=== PATIENT | female | born 1940 | race Caucasian/White ===

== ENCOUNTER → 2016-12-04 | Outpatient (CLI) | payer MEDICARE, OTHER ==
[2016-12-04 09:14] LABS: ABSOLUTE EOSINOPHILS # (AUTO) 0.1 10^3/uL (0.0-0.6); ABSOLUTE LYMPHOCYTES (AUTO) 1.4 10^3/uL (0.5-4.7); ABSOLUTE MONOCYTES (AUTO) 0.4 10^3/uL (0.1-1.4); ABSOLUTE NEUT (AUTO) 4.6 10^3/uL (1.7-8.2); BASOPHILS % (AUTO) 0.7 % (0-2); EOSINOPHILS % (AUTO) 1.9 % (0-6); HEMATOCRIT 42.3 % (36.0-47.0); HEMOGLOBIN 14.5 g/dL (12.0-15.5); HGB HCT DIFFERENCE 1.2; LYMPHOCYTES % (AUTO) 20.8 % (13-45); MEAN CORPUSCULAR HGB CONC 34.3 g/dL (32.0-36.0); MEAN CORPUSCULAR VOLUME 88 fl (80-97); MONOCYTES % (AUTO) 6.8 % (3-13); RED BLOOD COUNT 4.84 10^6/uL (3.72-5.28); RED CELL DISTRIBUTION WIDTH 14.5 % (11.5-14.0); SEGMENTED NEUTROPHILS % (AUTO) 69.8 % (42-78); WHITE BLOOD COUNT 6.6 10^3/uL (4.0-10.5)
[2016-12-04 09:38] LABS: ALANINE AMINOTRANSFERASE 23 U/L (9-52); ALBUMIN 4.1 g/dL (3.5-5.0); ALKALINE PHOSPHATASE 75 U/L (38-126); ANION GAP 12 (5-19); ASPARTATE AMINO TRANSFERASE 20 U/L (14-36); BILIRUBIN,DIRECT 0.3 mg/dL (0.0-0.4); BILIRUBIN,TOTAL 1.2 mg/dL (0.2-1.3); BLOOD UREA NITROGEN 11 mg/dL (7-20); CARBON DIOXIDE 27 mmol/L (22-30); CHLORIDE 105 mmol/L (98-107); CHOLESTEROL 175.21 mg/dL (0-200); CREATININE RESULT 0.48 mg/dL (0.52-1.25); Direct HDL 74 mg/dL (>40); GLUCOSE 87 mg/dL (75-110); POTASSIUM 4.3 mmol/L (3.6-5.0); TOTAL PROTEIN 7.2 g/dL (6.3-8.2); TRIGLYCERIDES 80 mg/dL (<150)
[2016-12-04 09:49] LABS: DIRECT LDL 76 mg/dL (<100)
== END ==
LOC: OD 08:33
PROVIDERS: ATTEND Internal Medicine
DX: I10 Essential (primary) hypertension (principal); R53.83 Other fatigue; E78.5 Hyperlipidemia, unspecified; E55.9 Vitamin D deficiency, unspecified; I49.5 Sick sinus syndrome
CPT/HCPCS: 36415; 80053; 80061; 82306; 84443; 85025

== ENCOUNTER → 2017-02-04 | Outpatient (CLI) | payer MEDICARE, OTHER ==
[2017-02-04 08:51] LABS: ALANINE AMINOTRANSFERASE 25 U/L (9-52); ALBUMIN 3.9 g/dL (3.5-5.0); ALKALINE PHOSPHATASE 114 U/L (38-126); ASPARTATE AMINO TRANSFERASE 17 U/L (14-36); BILIRUBIN,DIRECT 0.3 mg/dL (0.0-0.4); BILIRUBIN,TOTAL 0.8 mg/dL (0.2-1.3); CHOLESTEROL 156.29 mg/dL (0-200); Direct HDL 69 mg/dL (>40); TOTAL PROTEIN 6.6 g/dL (6.3-8.2); TRIGLYCERIDES 111 mg/dL (<150)
[2017-02-04 09:02] LABS: DIRECT LDL 58 mg/dL (<100)
== END ==
LOC: OD 07:22
PROVIDERS: ATTEND Specialist
DX: E78.5 Hyperlipidemia, unspecified (principal); I10 Essential (primary) hypertension; Z79.899 Other long term (current) drug therapy; I48.0 Paroxysmal atrial fibrillation; Z95.0 Presence of cardiac pacemaker; I45.10 Unspecified right bundle-branch block; I27.2 Other secondary pulmonary hypertension; K21.9 Gastro-esophageal reflux disease without esophagitis; E66.9 Obesity, unspecified; R00.1 Bradycardia, unspecified
CPT/HCPCS: 36415; 80061; 80076

== ENCOUNTER 2017-07-31 07:12 | Day surgery (SDC) | payer MEDICARE, OTHER ==
--- NOTE | 2017-07-29 19:13 | HISTORY AND PHYSICAL E ---
History and Physical NAME: LIZ THOMAS : 1940 AGE: 77Y ADMITTED: 07/31/2017 07/31/2017 ROOM: HISTORY OF PRESENT ILLNESS: She used to see Dr. Wynn in 2002. She did have colonoscopy showing ascending colon polyp. PAST SURGICAL HISTORY: 1. Colonoscopy 2002, tubular adenoma. 2. She had cholecystectomy. 3. She did have umbilical hernia repaired. 4. 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 She sees *------*, 2009, 2 mm polyp ascending colon, external hemorrhoids, diverticulosis. 5. Colonoscopy, 2005, no polyps. 6. Another colonoscopy, 2015, shows as follows. SOCIAL HISTORY: . Does not smoke, does not drink. REVIEW OF SYSTEMS: Constipation, obesity, osteoporosis, plantar fasciitis, hypertension, macular degeneration. PHYSICAL EXAMINATION: VITAL SIGNS: Blood pressure 110/70, pulse 80, respirations 20, temperature is 98. HEAD, EYES, EARS, NOSE AND THROAT: Normal. NECK: Supple. LUNGS: Clear. ABDOMEN: Soft. NEUROLOGIC EXAM: Negative. MEDICATIONS: 1. Simvastatin. 2. Omeprazole. 3. Eliquis 5 mg twice daily. 4. Toprol. 5. Vitamin D. 6. Glucosamine. 7. MiraLax. CONCLUSION: 1. The patient was seen 05/22. She has pacemaker, atrial fib. She takes Eliquis. She does have adenoma polyp, diverticulosis. The patient stopped her Eliquis 24 hours prior colonoscopy. She sees Dr. Lopes. 2. Pacemaker. 3. The patient for colon screening. PLAN: Admit, 07/31/2017. DICTATING PHYSICIAN: CHIVO PORTILLO M.D. [id number] PHY#: [id number] ID: [id number] JOB#: [id number] ACCT: [id number] cc:CHIVO PORTILLO M.D. >
[2017-07-31] MEDS ORDERED: ONDANSETRON HCL INJ/PF 4 MG/2 ML SDV ONE (07:14)
[2017-07-31] MEDS ORDERED: GLYCOPYRROLATE INJ 0.4 MG/2 ML VIAL ONE (07:14)
[2017-07-31] MEDS ORDERED: NALOXONE HCL INJ/PF 0.4 MG/1 ML SDV ONE (07:14)
[2017-07-31] MEDS ORDERED: GLUCAGON,HUMAN RECOMB 1 MG INJ ONE (07:15)
[2017-07-31] MEDS ORDERED: EPINEPHRINE INJ 1 MG/10 ML DISP.SYRIN ONE (07:15)
[2017-07-31] MEDS ORDERED: FLUMAZENIL INJ 0.5 MG/5 ML VIAL ONE (07:15)
[2017-07-31] MEDS: MIDAZOLAM 2 MG/2 ML INJ ONE ×2 (08:25→08:35)
[2017-07-31] MEDS: FENTANYL CITRATE INJ/PF 100 MCG/2 ML AMPUL ONE ×2 (08:27→08:31)
[2017-07-31 09:58] VITALS: BP 107/57
[2017-07-31 10:11] LABS: ABSOLUTE BASOPHILS # (AUTO) 0.1 10^3/uL (0.0-0.2); ABSOLUTE EOSINOPHILS # (AUTO) 0.1 10^3/uL (0.0-0.6); ABSOLUTE LYMPHOCYTES (AUTO) 1.1 10^3/uL (0.5-4.7); ABSOLUTE MONOCYTES (AUTO) 0.7 10^3/uL (0.1-1.4); ABSOLUTE NEUT (AUTO) 8.5 10^3/uL (1.7-8.2); BASOPHILS % (AUTO) 0.6 % (0-2); EOSINOPHILS % (AUTO) 0.9 % (0-6); HEMATOCRIT 39.5 % (36.0-47.0); HEMOGLOBIN 13.7 g/dL (12.0-15.5); HGB HCT DIFFERENCE 1.6; LYMPHOCYTES % (AUTO) 10.8 % (13-45); MEAN CORPUSCULAR HEMOGLOBIN 30.4 pg (27.0-33.4); MEAN CORPUSCULAR HGB CONC 34.7 g/dL (32.0-36.0); MEAN CORPUSCULAR VOLUME 88 fl (80-97); MONOCYTES % (AUTO) 6.9 % (3-13); RED BLOOD COUNT 4.51 10^6/uL (3.72-5.28); RED CELL DISTRIBUTION WIDTH 14.2 % (11.5-14.0); SEGMENTED NEUTROPHILS % (AUTO) 80.8 % (42-78); WHITE BLOOD COUNT 10.5 10^3/uL (4.0-10.5)
--- NOTE | 2017-07-31 11:18 | OPERATIVE REPORT E ---
Operative Report NAME: LIZ THOMAS : 1940 AGE: 77Y DATE OF SURGERY: 07/31/2017 ROOM: PREOPERATIVE DIAGNOSIS: Screening history of polyps, diverticulosis. POSTOPERATIVE DIAGNOSES: 1. Diverticulosis. 2. Diminutive polyps. 3. Nonspecific mucosal changes, possibility of tiny sessile polyps versus possibility of polyps. PROCEDURE: Colonoscopy. SURGEON: CHIVO PORTILLO M.D. ANESTHESIA: Versed 2, fentanyl 50. TISSUE REMOVED OR ALTERED: None. DESCRIPTION: Rectal exam: Skin tags. Rectum normal. Sigmoid diverticulosis, mild. Descending colon redundant, normal. Transverse colon normal. Ascending: Question 2-mm polyp was seen in the way in. I could not see it in the way out. Cecum normal. Scope withdrawn from cecum, ascending. There are nonspecific findings, could be sessile polyps, could be AV malformation. and reluctant to biopsy because it may be AV malformation, sigmoid diverticulosis. RECOMMENDATIONS: Followup colonoscopy 1 year regarding probability of sessile polyp, possibility of AV malformation, diverticulosis. Consideration followup colonoscopy 1 year. DISCHARGE PLAN: Resume all medications. Baseline CBC, CEA. Consideration followup colonoscopy after 1 year for further evaluation. DICTATING PHYSICIAN: CHIVO PORTILLO M.D. [id number] Y#: [id number] ID: [id number] JOB#: [id number] ACCT: [id number] cc:CHIVO PORTILLO M.D. >
--- NOTE | 2017-07-31 13:44 | DISCHARGE SUMMARY E ---
Discharge Summary NAME: LIZ THOMAS : 1940 AGE: 77Y ADMITTED: 07/31/2017 DISCHARGED: 07/31/2017 HOSPITAL COURSE: A 77-year-old female presented for followup regarding polyps, diverticulosis. She is allergic to PENICILLIN, SULFA, CEPHALEXIN, AND TRIMETHOPRIM. Today's colonoscopy was completed to the cecum. There is suspicious sessile polyps versus AV malformation. She did have external hemorrhoid. She did have history of lipoma in ascending colon. History of adenoma polyps. The patient does not have any serious polyps. There is one area I saw [address] and I could not see it on the way out in the distal ascending colon. There is a nonspecific finding. It could be AV malformation. It could be beginning of sessile polyps. Patient to continue all her medications and consider another colonoscopy in 1 year for further evaluation. There are flat lesions. It looks like ulcerated mucosa versus sessile polyp versus AV malformation. Followup colonoscopy in 1 year is appropriate. We will obtain baseline CEA and CBC. DICTATING PHYSICIAN: CHIVO PORTILLO M.D. [id number] PHY#: [id number] ID: [id number] JOB#: [id number] ACCT: [id number] cc:CHIVO PORTILLO M.D. >
== END 2017-07-31 10:05 | disposition home or self-care (01) ==
LOC: END 07:12
PROVIDERS: ATTEND Specialist
PROC: 0DJD8ZZ Inspection of Lower Intestinal Tract, Via Natural or Artificial Opening Endoscopic (ICD-10-PCS; principal; 2017-07-31 08:00)
DX: K57.30 Diverticulosis of large intestine without perforation or abscess without bleeding (principal); Z86.010 Personal history of colon polyps; I10 Essential (primary) hypertension; M81.0 Age-related osteoporosis without current pathological fracture; Z79.899 Other long term (current) drug therapy; Z79.02 Long term (current) use of antithrombotics/antiplatelets; Z95.0 Presence of cardiac pacemaker; Z88.0 Allergy status to penicillin; Z88.2 Allergy status to sulfonamides; Z88.1 Allergy status to other antibiotic agents; Z88.8 Allergy status to other drugs, medicaments and biological substances; Z90.49 Acquired absence of other specified parts of digestive tract
CPT/HCPCS: 45378; 36415; 82378; 85025; J2250; J3010; J1610; J2405; J0171; J2310; J3490

== ENCOUNTER → 2018-01-08 | Outpatient (CLI) | payer MEDICARE, OTHER ==
[2018-01-08 08:12] LABS: ABSOLUTE BASOPHILS # (AUTO) 0.1 10^3/uL (0.0-0.2); ABSOLUTE EOSINOPHILS # (AUTO) 0.4 10^3/uL (0.0-0.6); ABSOLUTE LYMPHOCYTES (AUTO) 0.6 10^3/uL (0.5-4.7); ABSOLUTE MONOCYTES (AUTO) 0.4 10^3/uL (0.1-1.4); ABSOLUTE NEUT (AUTO) 6.3 10^3/uL (1.7-8.2); EOSINOPHILS % (AUTO) 5.4 % (0-6); HEMOGLOBIN 12.9 g/dL (12.0-15.5); LYMPHOCYTES % (AUTO) 7.2 % (13-45); MEAN CORPUSCULAR VOLUME 85 fl (80-97); MONOCYTES % (AUTO) 5.4 % (3-13); PLATELET COUNT 401 10^3/uL (150-450); RED BLOOD COUNT 4.46 10^6/uL (3.72-5.28); RED CELL DISTRIBUTION WIDTH 14.8 % (11.5-14.0); TOTAL CELLS COUNTED % (AUTO) 100 %; WHITE BLOOD COUNT 7.8 10^3/uL (4.0-10.5)
[2018-01-08 08:48] LABS: ALANINE AMINOTRANSFERASE 24 U/L (9-52); ALBUMIN 2.9 g/dL (3.5-5.0); ALKALINE PHOSPHATASE 75 U/L (38-126); ANION GAP 12 (5-19); ASPARTATE AMINO TRANSFERASE 18 U/L (14-36); BILIRUBIN,DIRECT 0.3 mg/dL (0.0-0.4); BILIRUBIN,TOTAL 0.6 mg/dL (0.2-1.3); BLOOD UREA NITROGEN 8 mg/dL (7-20); CALCIUM 9.3 mg/dL (8.4-10.2); CARBON DIOXIDE 27 mmol/L (22-30); CHLORIDE 106 mmol/L (98-107); CHOLESTEROL 119.36 mg/dL (0-200); GLUCOSE 96 mg/dL (75-110); POTASSIUM 4.2 mmol/L (3.6-5.0); SODIUM 145.2 mmol/L (137-145); TOTAL PROTEIN 5.9 g/dL (6.3-8.2); TRIGLYCERIDES 94 mg/dL (<150)
[2018-01-08 08:59] LABS: DIRECT LDL 62 mg/dL (<100)
== END ==
LOC: OD 07:22
PROVIDERS: ATTEND Internal Medicine
DX: I10 Essential (primary) hypertension (principal); E78.5 Hyperlipidemia, unspecified; K21.9 Gastro-esophageal reflux disease without esophagitis; R53.83 Other fatigue
CPT/HCPCS: 36415; 80053; 80061; 84443; 85025

== ENCOUNTER → 2019-01-21 | Outpatient (CLI) | payer MEDICARE, OTHER ==
[2019-01-21 09:17] LABS: HEMATOCRIT 43.3 % (36.0-47.0); HEMOGLOBIN 14.6 g/dL (12.0-15.5); MEAN CORPUSCULAR HEMOGLOBIN 29.6 pg (27.0-33.4); MEAN CORPUSCULAR HGB CONC 33.7 g/dL (32.0-36.0); MEAN CORPUSCULAR VOLUME 88 fl (80-97); PLATELET COUNT 229 10^3/uL (150-450); RED BLOOD COUNT 4.93 10^6/uL (3.72-5.28); RED CELL DISTRIBUTION WIDTH 14.9 % (11.5-14.0); WHITE BLOOD COUNT 5.1 10^3/uL (4.0-10.5)
[2019-01-21 09:45] LABS: ANION GAP 11 (5-19); BLOOD UREA NITROGEN 8 mg/dL (7-20); CALCIUM 9.6 mg/dL (8.4-10.2); CARBON DIOXIDE 26 mmol/L (22-30); CHLORIDE 107 mmol/L (98-107); GLUCOSE 81 mg/dL (75-110); POTASSIUM 4.5 mmol/L (3.6-5.0); SODIUM 143.7 mmol/L (137-145)
== END ==
LOC: OD 07:42
PROVIDERS: ATTEND Internal Medicine Clinical Cardiac Electrophysiology
DX: I48.0 Paroxysmal atrial fibrillation (principal); I49.5 Sick sinus syndrome; I49.3 Ventricular premature depolarization; Z95.0 Presence of cardiac pacemaker; Z79.01 Long term (current) use of anticoagulants; Z51.81 Encounter for therapeutic drug level monitoring; Z79.899 Other long term (current) drug therapy
CPT/HCPCS: 36415; 80048; 83735

== ENCOUNTER → 2019-04-08 | Outpatient (CLI) | payer MEDICARE, OTHER ==
[2019-04-08 11:26] LABS: ABSOLUTE BASOPHILS # (AUTO) 0.1 10^3/uL (0.0-0.2); ABSOLUTE EOSINOPHILS # (AUTO) 0.2 10^3/uL (0.0-0.6); ABSOLUTE LYMPHOCYTES (AUTO) 1.4 10^3/uL (0.5-4.7); ABSOLUTE MONOCYTES (AUTO) 0.5 10^3/uL (0.1-1.4); ABSOLUTE NEUT (AUTO) 4.5 10^3/uL (1.7-8.2); BASOPHILS % (AUTO) 1.3 % (0-2); EOSINOPHILS % (AUTO) 2.6 % (0-6); HEMATOCRIT 41.9 % (36.0-47.0); HEMOGLOBIN 14.2 g/dL (12.0-15.5); LYMPHOCYTES % (AUTO) 21.1 % (13-45); MEAN CORPUSCULAR HEMOGLOBIN 30.2 pg (27.0-33.4); MEAN CORPUSCULAR HGB CONC 33.9 g/dL (32.0-36.0); MEAN CORPUSCULAR VOLUME 89 fl (80-97); PLATELET COUNT 235 10^3/uL (150-450); RED CELL DISTRIBUTION WIDTH 14.6 % (11.5-14.0); TOTAL CELLS COUNTED % (AUTO) 100 %; WHITE BLOOD COUNT 6.6 10^3/uL (4.0-10.5)
[2019-04-08 11:48] LABS: ALBUMIN 4.1 g/dL (3.5-5.0); ALKALINE PHOSPHATASE 75 U/L (38-126); ANION GAP 6 (5-19); ASPARTATE AMINO TRANSFERASE 21 U/L (14-36); BILIRUBIN,DIRECT 0.2 mg/dL (0.0-0.4); BILIRUBIN,TOTAL 0.9 mg/dL (0.2-1.3); BLOOD UREA NITROGEN 8 mg/dL (7-20); CALCIUM 9.8 mg/dL (8.4-10.2); CARBON DIOXIDE 27 mmol/L (22-30); CHLORIDE 107 mmol/L (98-107); CHOLESTEROL 149.07 mg/dL (0-200); GLUCOSE 89 mg/dL (75-110); POTASSIUM 4.3 mmol/L (3.6-5.0); TRIGLYCERIDES 93 mg/dL (<150)
[2019-04-08 11:58] LABS: DIRECT LDL 70 mg/dL (<100)
== END ==
LOC: OD 10:36
PROVIDERS: ATTEND Internal Medicine
DX: E78.5 Hyperlipidemia, unspecified (principal); I10 Essential (primary) hypertension; E55.9 Vitamin D deficiency, unspecified; K21.9 Gastro-esophageal reflux disease without esophagitis; R53.83 Other fatigue
CPT/HCPCS: 36415; 80053; 80061; 82306; 84443; 85025